=== PATIENT | female | born 1960 | race Hispanic/Latino ===

== ENCOUNTER → 2019-06-03 | Day surgery (SDC) | payer OTHER ==
[~2019-06-03] MED LIST: PROPOFOL IV EMULSION 10 MG/ML 50 ML VIAL ONE; VITAMIN E400 UNI1 PO
[2019-06-03 07:20] VITALS: BP 114/67
== END | disposition home or self-care (01) ==
LOC: OR 05:28
PROVIDERS: ATTEND Internal Medicine Gastroenterology
DX: Z12.11 Encounter for screening for malignant neoplasm of colon (principal); Z01.810 Encounter for preprocedural cardiovascular examination; E78.5 Hyperlipidemia, unspecified; R00.1 Bradycardia, unspecified; K64.8 Other hemorrhoids
CPT/HCPCS: 45378; 93005